=== PATIENT | female | born 1995 | race Caucasian/White ===

== ENCOUNTER 2016-08-17 08:30 | Outpatient (CLI) | payer BC, OTHER ==
[~2016-08-17] VITALS: Ht 170.2 cm; Wt 71.2 kg
--- OUTSIDE RECORDS SUMMARY | 2016-08-17 08:33 | XMS REPORT ---
Author Author LINO ZAMORA [facility] eClinicalWorks Address Unknown Phone Unavailable Care Team Providers Care Pillar Man Name Role Phone LINO ZAMORA CP Unavailable Allergies, Adverse Reactions, Alerts Substance Reaction Event Type N.K.D.A. Info Not Available Non Drug Allergy Problems Problem Type Condition Code Onset Dates Condition Status Assessment Abnormal gynecological examination Z01.411 Active Assessment Visit for gynecologic examination Z01.419 Active Assessment Right lower quadrant pain R10.31 Active Medications No Known Medications Procedures Procedure Coding System Code Date CULTURE, BACTERIA, OTHER CPT-4 68873 Feb 17, 2016 TRICHOMONAS ASSAY W/OPTIC CPT-4 29562 Feb 17, 2016 No Charge CPT-4 69669 Feb 17, 2016 BRAVO VAG, DNA, DIR PROBE CPT-4 12882 Feb 17, 2016 SPECIMEN HANDLING CPT-4 48626 Feb 17, 2016 Office Visit, Est Pt., Level 4 CPT-4 53299 Feb 17, 2016 Vital Signs Date/Time: Feb 17, 2016 Blood Pressure Systolic 102 mmHg Cardiac Monitoring Heart Rate 80 bpm Weight 165.3 lbs Blood Pressure Diastolic 64 mmHg Results No Known Results Summary Purpose eClinicalWorks Submission
[2016-08-17 08:44] VITALS: BP 100/62
[2016-08-17 09:11] LABS: BASOPHILS % (AUTO) 0 % (0-10); EOSINOPHILS # (AUTO) 0.1 10^3/uL (0.0-0.3); EOSINOPHILS % (AUTO) 2 % (0-10); LYMPHOCYTES # (AUTO) 2.5 X 10^3 (1.0-4.0); LYMPHOCYTES % (AUTO) 29 % (12-44); MEAN CORPUSCULAR HEMOGLOBIN 29 PG (25-34); MEAN CORPUSCULAR HGB CONC 33 G/DL (32-36); MEAN CORPUSCULAR VOLUME 86 FL (80-99); MEAN PLATELET VOLUME 11.4 FL (7.4-10.4); MONOCYTES # (AUTO) 0.7 X 10^3 (0.0-1.0); MONOCYTES % (AUTO) 9 % (0-12); NEUTROPHILS # (AUTO) 5.2 X 10^3 (1.8-7.8); NEUTROPHILS % (AUTO) 61 % (42-75); PLATELET COUNT 195 10^3/uL (130-400); RED BLOOD COUNT 4.29 10^6/uL (4.35-5.85); RED CELL DISTRIBUTION WIDTH 12.2 % (10.0-14.5); WHITE BLOOD COUNT 8.6 10^3/uL (4.3-11.0)
[2016-08-22] MEDS ORDERED: D5 LR IV SOLUTION 1,000 ML IV SCH (11:21)
--- NOTE | 2016-08-22 11:23 | Progress Note-Standard ---
Standard Progress Note Progress Notes/Assess & Plan Date Seen 08/22/16 Assess & Plan/Chief Complaint The following H&P was written 07/26/16 Gynecology Visit * Patient: ANNIE ZAMORA Age: 20 years Sex: Female : 1995 Associated Diagnoses: None Author: Lilly GUPTA, Salud Visit Information Visit type: Scheduled follow-up. Accompanied by: Spouse. Source of history: Self, Medical record. Referral source: Shandra Syed APRN. History limitation: None. Chief Complaint 07/26/2016 2:37 PM MACHINE CAPTAIN HERE TO DISCUSS TEST RESULTS History of Present Illness 20 y/o here for f/u on test results Reports last cycle 07/16/15, was very painful. Cycles every 32 days currently. Has tried OPKs which are negative. See last HPI: 20 y/o here for dysmenorrhea Reports she and her spouse have been trying to achieve for the last 5 years (delivered via CD for suspected CPD in August 2011, 7lb female) Since then, has noted increasing pelvic pain with periods, worse in last 6 months. Denies dypsareunia or dyschezia. Went to [facility] to discuss, had labs drawn Reports cycles every 24-34 days, lasting 4-6 days Has not used OPKs, having intercourse every day of cycle has not had SA, has fathered her nearly 5 y/o and a 3 y/o with another woman Taking PNV daily OBHx: CD 7lb for suspected CPD in [place] GYNHx: Menses 13 x 24-34 x 4-6. One lifetime partner, no STIs. LPS Feb 2016 normal, no history of abnormal pap smear. Review of Systems General - negative except per HPI Skin - negative except per HPI HEENT - negative except per HPI Breasts - negative except per HPI Respiratory - negative except per HPI Cardiovascular - negative except per HPI Gastrointestinal - negative except per HPI Urinary - negative except per HPI Gynecologic - see HPI Musculoskeletal - negative except per HPI Endocrine - negative except per HPI Hematologic - negative except per HPI Neurologic - negative except per HPI Psychiatric - negative except per HPI Health Status Allergies: Allergic Reactions (Selected) No Known Medication Allergies Medications: (Selected) Documented Medications Documented 1: 0 Refill(s), Type: Maintenance Problem list: All Problems (Selected) Dysmenorrhea, unspecified / SNOMED CT 659499764 / Confirmed Histories Past Medical History: Active Dysmenorrhea, unspecified (870604386) Resolved (043545905): Resolved in the month of 08/2011 at 15 years. Family History: Entire family history is negative. Procedure history: section (89761673). Social History: Tobacco Assessment Never smoker Physical Examination Vital Signs 07/26/2016 2:37 PM MACHINE CAPTAIN Systolic Blood Pressure 116 mmHg Diastolic Blood Pressure 62 mmHg Mean Arterial Pressure 80 mmHg BP Site Right arm Measurements from flowsheet : Measurements 07/26/2016 2:37 PM MACHINE CAPTAIN Height Measured - Standard 67 in Weight Measured - Standard 157 lb BSA 1.83 m2 Body Mass Index 24.59 kg/m2 General: Alert and oriented, No acute distress. Psychiatric: Cooperative, Appropriate mood & affect. Review / Management Results review: reviewed SA - normal. Impression and Plan Plan: 20 y/o with dysmenorrhea, chronic pelvic pain x 7 months, desires conception. Reviewed SA result - normal Her labs were normal, ultrasound was normal Discussed possible cause could be endometriosis - only way to treat this is empirically or diagnose officially with diagnostic laparoscopy. They would like to proceed with this route. Will also evaluate endometrial cavity with hysteroscopy to ensure no adhesions and peform chromopertubation at the time of the case. Procedure was discussed, risks were also reviewed. Verbal informed consent obtained today (written consent prior to OR). All questions were answered and patient was given information on preparation for surgery. Risks: She is aware of the risks of surgery, including injury to the bowel/bladder/ ureter/vessels and nerves which may need to be repaired intraoperatively or postoperatively. She is also aware of the risk of bowel/ureteral/bladder fistula. Other risks including infection, DVT/PE, wound separation/cellulitis/ evisceration, pulmonary/cardiac complications or were also discussed. She is not on blood thinners. She does not take beta blockers. She does not require a bowel prep. Scheduled 08/22/16 for diagnostic hysteroscopy, diagnostic laparoscopy, chromopertubation at 1200 (cycle is expected 08/18, so will be in early part of menses). . Patient Instructions: Pelvic Pain, Female. Signature Line Signed and Authored by Salud Carr MD on 07/26/2016 04:11 PM MACHINE CAPTAIN Charted Date: July 26, 2016 3:58 PM MACHINE CAPTAIN Subject / Title: Gynecology Visit * Performed By: Salud Carr MD on July 26, 2016 4:11 PM MACHINE CAPTAIN Electronically Signed By: Salud Carr MD on July 26, 2016 4:11 PM MACHINE CAPTAIN Visit Information: [id number], Via [facility], Outpatient, 07/26/2016 - 07/28/2016 SALUD CARR MD Aug 22, 2016 11:23
--- NOTE | 2016-08-22 11:24 | Progress Note-Pre Operative ---
Pre-Operative Progress Note H&P Reviewed The H&P was reviewed, patient examined and no changes noted. Date H&P Reviewed: Aug 22, 2016 Time H&P Reviewed: 11:24 Pre-Operative Diagnosis: Chronic pelvic pain, abnormal uterine bleeding ANGELA SUAREZ MD Aug 22, 2016 11:24
--- NOTE | 2016-08-22 11:27 | Discharge Inst-Women's Service ---
Discharge Inst-Women's Serv Depart Medication/Instructions New, Converted or Re-Newed RX: RX on Chart (and transmitted to pharmacy) Final Diagnosis Chronic pelvic pain Consults/Follow Up Additional Follow Up: Yes Orders/Referrals 2-[address] Carr Activity Activity: Activity as Tolerated Driving Instructions: No Driving for 24 Hours (or while taking narcotic pain medications) NO SMOKING: NO SMOKING Nothing Inside Vagina: No Douching, No Tampons Other Activity No heavy lifting > 10 lb, no strenuous activity for 7 days Diet Discharge Diet: No Restrictions Symptoms to Report to DrTeto: Bleeding Excessive, Pain Increased, Fever Over 101 Degrees F, Pain/Pressure in Chest, Vaginal Bleeding Increase, Dizziness/Fainting , Nausea/Vomiting, Shortness of Breath For Any Problems or Questions: Contact Your Physician, Go to Emergency Room Skin/Wound Care Infection Signs and Symptoms: Increased Redness, Foul Odor of Wound, Increased Drainage Operative Area Clean and Dry: Keep Incision Clean/Dry Stitches/[place]/Dermabond: Dermabond, Care of Stitches Bathing Instructions: ANGELA Hunt MD Aug 22, 2016 11:27
[2016-08-22] MEDS ORDERED: ONDANSETRON 4 MG/2 ML (SDV) Z0FRAN IVP PRN (11:30)
[2016-08-22] MEDS ORDERED: KETOROLAC 30 MG/ML VIAL IVP ONE (11:30)
== END 2016-08-17 08:55 | disposition home or self-care (01) ==
LOC: PREOP 08:30
PROVIDERS: ATTEND Obstetrics & Gynecology
DX: Z01.812 Encounter for preprocedural laboratory examination (principal); Z11.2 Encounter for screening for other bacterial diseases; N94.6 Dysmenorrhea, unspecified; R10.2 Pelvic and perineal pain
CPT/HCPCS: 36415; 85025; 86850; 86900; 86901; 87081

== ENCOUNTER 2016-08-22 10:21 | Day surgery (SDC) | payer BC, OTHER ==
[~2016-08-22] VITALS: Ht 170.2 cm; Wt 71.2 kg
[2016-08-22 10:19] VITALS: BP 107/71
[2016-08-22] MEDS ORDERED: LACTATED RINGERS 1,000 ML IV PRN (10:39)
[2016-08-22] MEDS ORDERED: fentaNYL INJECTION 100 MCG/2 ML AMP ONE (10:50)
[2016-08-22] MEDS ORDERED: MIDAZOLAM 2 MG/2 ML (VERSED) VIAL ONE (10:50)
[2016-08-22] MEDS ORDERED: METHYLENE BLUE 1% INJ 1 ML AMP ONE (11:14)
[2016-08-22] MEDS ORDERED: BUP/EPI 0.25% 1:200,000 (MARCAINE) 30 ML VIAL ONE (11:14)
[2016-08-22] MEDS ORDERED: HYDR-3729 PO (11:26)
[2016-08-22] MEDS ORDERED: SIME80TA16 PO (11:26)
[2016-08-22] MEDS ORDERED: IBUP-1773 PO (11:26)
[2016-08-22] MEDS ORDERED: DOCU-143 PO (11:26)
--- NOTE | 2016-08-22 11:50 | Progress Note-Standard ---
Standard Progress Note Progress Notes/Assess & Plan Date Seen 08/22/16 Assess & Plan/Chief Complaint The following H&P was written 07/26/16 Gynecology Visit * Patient: ANNIE ZAMORA Age: 20 years Sex: Female : 1995 Associated Diagnoses: None Author: Lilly GUPTA, Salud Visit Information Visit type: Scheduled follow-up. Accompanied by: Spouse. Source of history: Self, Medical record. Referral source: Shandra Syed APRN. History limitation: None. Chief Complaint 07/26/2016 2:37 PM VIDEO RECORDER MECHANIC HERE TO DISCUSS TEST RESULTS History of Present Illness 20 y/o here for f/u on test results Reports last cycle 07/16/15, was very painful. Cycles every 32 days currently. Has tried OPKs which are negative. See last HPI: 20 y/o here for dysmenorrhea Reports she and her spouse have been trying to achieve for the last 5 years (delivered via CD for suspected CPD in August 2011, 7lb female) Since then, has noted increasing pelvic pain with periods, worse in last 6 months. Denies dypsareunia or dyschezia. Went to [facility] to discuss, had labs drawn Reports cycles every 24-34 days, lasting 4-6 days Has not used OPKs, having intercourse every day of cycle has not had SA, has fathered her nearly 5 y/o and a 3 y/o with another woman Taking PNV daily OBHx: CD 7lb for suspected CPD in [place] GYNHx: Menses 13 x 24-34 x 4-6. One lifetime partner, no STIs. LPS Feb 2016 normal, no history of abnormal pap smear. Review of Systems General - negative except per HPI Skin - negative except per HPI HEENT - negative except per HPI Breasts - negative except per HPI Respiratory - negative except per HPI Cardiovascular - negative except per HPI Gastrointestinal - negative except per HPI Urinary - negative except per HPI Gynecologic - see HPI Musculoskeletal - negative except per HPI Endocrine - negative except per HPI Hematologic - negative except per HPI Neurologic - negative except per HPI Psychiatric - negative except per HPI Health Status Allergies: Allergic Reactions (Selected) No Known Medication Allergies Medications: (Selected) Documented Medications Documented 1: 0 Refill(s), Type: Maintenance Problem list: All Problems (Selected) Dysmenorrhea, unspecified / SNOMED CT 592432860 / Confirmed Histories Past Medical History: Active Dysmenorrhea, unspecified (461043589) Resolved (581108214): Resolved in the month of 08/2011 at 15 years. Family History: Entire family history is negative. Procedure history: section (16248853). Social History: Tobacco Assessment Never smoker Physical Examination Vital Signs 07/26/2016 2:37 PM VIDEO RECORDER MECHANIC Systolic Blood Pressure 116 mmHg Diastolic Blood Pressure 62 mmHg Mean Arterial Pressure 80 mmHg BP Site Right arm Measurements from flowsheet : Measurements 07/26/2016 2:37 PM VIDEO RECORDER MECHANIC Height Measured - Standard 67 in Weight Measured - Standard 157 lb BSA 1.83 m2 Body Mass Index 24.59 kg/m2 General: Alert and oriented, No acute distress. Psychiatric: Cooperative, Appropriate mood & affect. Review / Management Results review: reviewed SA - normal. Impression and Plan Plan: 20 y/o with dysmenorrhea, chronic pelvic pain x 7 months, desires conception. Reviewed SA result - normal Her labs were normal, ultrasound was normal Discussed possible cause could be endometriosis - only way to treat this is empirically or diagnose officially with diagnostic laparoscopy. They would like to proceed with this route. Will also evaluate endometrial cavity with hysteroscopy to ensure no adhesions and peform chromopertubation at the time of the case. Procedure was discussed, risks were also reviewed. Verbal informed consent obtained today (written consent prior to OR). All questions were answered and patient was given information on preparation for surgery. Risks: She is aware of the risks of surgery, including injury to the bowel/bladder/ ureter/vessels and nerves which may need to be repaired intraoperatively or postoperatively. She is also aware of the risk of bowel/ureteral/bladder fistula. Other risks including infection, DVT/PE, wound separation/cellulitis/ evisceration, pulmonary/cardiac complications or were also discussed. She is not on blood thinners. She does not take beta blockers. She does not require a bowel prep. Scheduled 08/22/16 for diagnostic hysteroscopy, diagnostic laparoscopy, chromopertubation at 1200 (cycle is expected 08/18, so will be in early part of menses). . Patient Instructions: Pelvic Pain, Female. Signature Line Signed and Authored by Salud Carr MD on 07/26/2016 04:11 PM VIDEO RECORDER MECHANIC Charted Date: July 26, 2016 3:58 PM VIDEO RECORDER MECHANIC Subject / Title: Gynecology Visit * Performed By: Salud Carr MD on July 26, 2016 4:11 PM VIDEO RECORDER MECHANIC Electronically Signed By: Salud Carr MD on July 26, 2016 4:11 PM VIDEO RECORDER MECHANIC Visit Information: [id number], [facility], Outpatient, 07/26/2016 - 07/28/2016 SALUD CARR MD Aug 22, 2016 11:50
--- NOTE | 2016-08-22 11:51 | Discharge Inst-Women's Service ---
Discharge Inst-Women's Serv Depart Medication/Instructions New, Converted or Re-Newed RX: RX on Chart (and transmitted to pharmacy) Final Diagnosis Chronic pelvic pain, dysmenorrhea Consults/Follow Up Additional Follow Up: Yes Orders/Referrals 2-[address] Carr Activity Activity: Activity as Tolerated (no strenuous activity, no heavy lifting for 7 days) Driving Instructions: No Driving for 24 Hours (or while taking narcotic pain medications) NO SMOKING: NO SMOKING Nothing Inside Vagina: No Douching, No Watchtower, No Tampons Diet Discharge Diet: No Restrictions Symptoms to Report to DrTeto: Bleeding Excessive, Pain Increased, Fever Over 101 Degrees F, Pain/Pressure in Chest, Vaginal Bleeding Increase, Dizziness/Fainting , Nausea/Vomiting, Shortness of Breath For Any Problems or Questions: Contact Your Physician, Go to Emergency Room Skin/Wound Care Infection Signs and Symptoms: Increased Redness, Foul Odor of Wound, Increased Drainage Operative Area Clean and Dry: Keep Incision Clean/Dry Stitches/[place]/Dermabond: Dermabond, Care of Stitches Bathing Instructions: ANGELA Hunt MD Aug 22, 2016 11:51
--- NOTE | 2016-08-22 11:55 | OB/GYN Operative Report ---
Operative Report Date of Procedure: November 02, 2015 Preoperative Diagnosis: Pelvic pain, dysmenorrhea Postoperative Diagnosis: Same plus endometrial polyp and patent uterine tubes Procedure: Operative hysteroscopy, endometrial polypectomy, diagnostic laparoscopy, chromopertubation Surgeon: Angela Carr MD Anesthesia: General Estimated Blood Loss: Minimal Specimens: Endometrial polyp to pathology Indications for Procedure: This is a 20 year old female with chronic pelvic pain and dysmenorrhea. She elected to undergo evaluation for possible endometriosis. She was counseled on risks, benefits and alternatives to the procedure. Findings: Hysteroscopy: Endometrial polyp approximately 1cm in size. Otherwise, normal appearing cavity with normal appearing tubal ostia. Laparoscopy: Normal appearing liver, gallbladder, stomach, bowel, bladder. Uterus normal in appearance, peritoneum overlying bladder with some adhesive disease from prior delivery (minimal). Bilateral tubes and ovaries normal in appearance. Uterine tubes patent. Procedure: The patient was taken to the operating room where sequential compression devices were placed on the bilateral lower extremities. Intravenous fluids were running. General anesthesia was obtained without difficulty. She was repositioned in the dorsal lithotomy position with the use of Yellofin stirrups. She was prepped and draped in the typical sterile fashion. The bladder was emptied with a hartmann catheter. A weighted speculum was placed in the vagina. A right angle was utilized to elevate the vaginal tissue anteriorly. A single tooth tenaculum was placed on the anterior lip of the cervix. The uterus was sounded to 8 cm. Crump dilators were used to dilate the cervix to 17mm. The Truclear 5 mm hysteroscope was then advanced into the uterine cavity under direct visualization. The aforementioned findings were noted. The morcellator was utilized to remove the aforementioned polyp. Hemostasis was noted and a normal appearing cavity was noted. The hysteroscope was removed. The acorn uterine manipulator was placed in the uterus. Gloves were then changed and the attention was turned to the abdomen. An infraumbilical incision was made with a knife following injection of 0.25% marcaine and the Veress needle was introduced into the peritoneal cavity, the opening pressure was 2mmHg. The abdomen was then insufflated to a pressure of 15 mm Hg with CO2 gas. The camera was introduced into the abdomen, confirming intraperitoneal placement and lack of operative injury to the stomach, bowel, vessels or omentum. One additional 5 mm port site was placed in the left lower quadrant under direct visualization, 2cm medial and 2 cm superior to the anterior superior iliac spine. We then turned our attention to the pelvis. The aforementioned findings were noted. Overall, a lack of pelvic disease was noted, however there was some scarring along the bladder peritoneum from the previous delivery. Methylene blue was pushed into the uterine cavity through the acorn manipulator and both uterine tubes were noted to be patent. There was no evidence of endometriosis. The gas was allowed to escape the abdomen. All ports were then removed from the abdomen under direct visualization and then finally the camera port was removed. The port sites were closed using dermabond. All instruments were removed from the vagina. The patient was brought to the recovery room in stable condition after awakening from general anesthesia. Sponge, lap and needle counts were correct x 3. Condition: Stable to recovery room ANGELA CARR MD Aug 22, 2016 11:55
[2016-08-22] MEDS ORDERED: DEXAMETHASONE PF 10 MG/ML (DECADRON) VIAL ONE (12:32)
[2016-08-22] MEDS ORDERED: LIDOCAINE PF 2% 10 ML (XYLOCAINE) AMP ONE (12:32)
[2016-08-22] MEDS ORDERED: proPOfol 200 MG/20 ML (DIPRIVAN) VIAL IV ONE (12:32)
[2016-08-22] MEDS ORDERED: ONDANSETRON 4 MG/2 ML (SDV) Z0FRAN ONE (12:32)
[2016-08-22] MEDS ORDERED: LACTATED RINGERS 1,000 ML IV ONE (12:32)
[2016-08-22] MEDS ORDERED: SEVOFLURANE (ULTANE) 15 ML INHAL SOLN ONE (12:32)
[2016-08-22] MEDS ORDERED: GLYCOPYRROLATE 0.2 MG/ML (ROBINUL) 2 ML VIAL ONE (12:33)
[2016-08-22] MEDS ORDERED: NEOSTIGMINE (BLOXIVERZ ) 1 MG/1ML 10 ML VIAL ONE (12:33)
[2016-08-22] MEDS ORDERED: KETOROLAC 30 MG/ML VIAL ONE (12:37)
[2016-08-22] MEDS ORDERED: fentaNYL INJECTION 100 MCG/2 ML AMP IV PRN (13:00)
[2016-08-22] MEDS ORDERED: ONDANSETRON 4 MG/2 ML (SDV) Z0FRAN IV ONE (13:00)
[2016-08-22] MEDS ORDERED: HYDROmorphone (DILAUDID) 2 MG/ML VIAL IV PRN (13:00)
[2016-08-22] MEDS: morphine INJ 10 MG/ML 1ML (SYR OR VIAL) IV PRN ×2 (13:05→13:10)
[2016-08-22 13:45] VITALS: BP 92/59
[2016-08-22 14:15] VITALS: BP 92/55
[2016-08-22 14:45] VITALS: BP 89/52
[2016-08-22 15:30] VITALS: BP 89/52
== END 2016-08-22 15:30 | disposition home or self-care (01) ==
LOC: SDC 10:21
PROVIDERS: ATTEND Obstetrics & Gynecology
DX: N84.0 Polyp of corpus uteri (principal)
CPT/HCPCS: 84703; 88305

== ENCOUNTER → 2016-10-23 | Outpatient (CLI) | payer BC ==
[~2016-10-23] MED LIST: DOCU-143 PO; HYDR-3729 PO; IBUP-1773 PO; SIME80TA16 PO
== END ==
LOC: LAB 14:16
PROVIDERS: ATTEND Obstetrics & Gynecology
DX: Z31.9 Encounter for procreative management, unspecified (principal)
CPT/HCPCS: 36415; 84144

== ENCOUNTER → 2017-03-06 | Outpatient (CLI) | payer BC ==
--- NOTE | 2017-03-06 17:07 | Diagnostic Imaging Report ---
First trimester OB ultrasound. INDICATION: Pelvic pain. FINDINGS: There is a normal-appearing single intrauterine . An embryo is seen with cardiac activity at 146 beats per minute. The crown-rump length is at 7 weeks and zero days. LESTER is 10/23/17. The right ovary is 3.4 CM in size with a 2 cm corpus luteum cyst suggested. IMPRESSION: Live single intrauterine . Dictated by: Dictated on workstation # [id number]
== END ==
LOC: RAD 16:13
PROVIDERS: ATTEND Obstetrics & Gynecology
DX: O26.899 Other specified pregnancy related conditions, unspecified trimester (principal); R10.2 Pelvic and perineal pain; Z3A.01 Less than 8 weeks gestation of pregnancy
CPT/HCPCS: 76801

== ENCOUNTER → 2017-06-28 | Outpatient (CLI) | payer BC ==
--- NOTE | 2017-06-28 15:05 | Diagnostic Imaging Report ---
INDICATION: Third trimester. TECHNIQUE: Multiple real-time grayscale images were obtained over the gravid uterus. COMPARISON: 03/06/2017. FINDINGS: There is a single living intrauterine in a breech presentation. There is normal volume of amniotic fluid. The placenta is posterior. There is no previa. The heart rate is 134 beats per minute. The anatomical survey is unremarkable apart from limited view of the lower spine. Cervical length is 4 cm. IMPRESSION: 1. Single living intrauterine with a sonographically estimated gestational age of 23 weeks 5 days and estimated date of confinement of October 23, 2017. 2. Cervical length is 4 cm. 3. Limited visualization of the lower lumbar spine. Biometrical measurements are as follows: Biparietal 5.71 cm, age 23 weeks 4 days. Head circumference 20.93 cm, age 23 weeks 1 days. Abdominal circumference 19.8 cm, age 24 weeks 4 days. Femur length 4.15 cm, age 23 weeks 4 days. Sonographic estimate age: 23 weeks 5 days. Sonographic estimated date of delivery: 10/20/2016. Estimated Weight: 641 gm (+/- 94 gm). LMP percentile: 73%. heart rate: 134 beats per minute. number: 1 of 1. Dictated by: Dictated on workstation # [id number]
== END ==
LOC: RAD 14:19
PROVIDERS: ATTEND Obstetrics & Gynecology
DX: Z36.89 Encounter for other specified antenatal screening (principal); Z3A.23 23 weeks gestation of pregnancy
CPT/HCPCS: 76816

== ENCOUNTER → 2017-09-20 | Outpatient (CLI) | payer BC ==
--- NOTE | 2017-09-20 20:20 | Diagnostic Imaging Report ---
INDICATION: Large for gestational age. EXAMINATION: OB ultrasound. COMPARISON: 03/06/2017 and 06/28/2017. FINDINGS: The previous ultrasound exam performed on 06/28/2017 noted a single live fetus approximately 20 weeks 5 days gestation +/-1 week. There are no abnormalities identified although lumbar spine was not optimally visualized. On this exam, the fetus is again evident. The fetus is cephalic in presentation. heart motion was noted and a rate of 149 bpm was recorded. There is no abnormality identified. The growth parameters are fairly uniform and have progressed as expected since the prior exam. The estimated weight is in the 67th percentile. The amniotic fluid volume is within normal limits. The placenta is posterior and there is no previa. IMPRESSION: 1. There is a single live fetus approximately 34 weeks 2 days gestation +/-1 week. EDC remains 10/23/2017. 2. There is no abnormality identified. 3. The growth parameters have progressed as expected since the prior study. Dictated by: Dictated on workstation # [id number]
== END ==
LOC: RAD 12:29
PROVIDERS: ATTEND Obstetrics & Gynecology
DX: O36.63X0 Maternal care for excessive fetal growth, third trimester, not applicable or unspecified (principal); Z3A.34 34 weeks gestation of pregnancy
CPT/HCPCS: 76816

== ENCOUNTER 2017-10-18 06:40 | Inpatient (IN) | payer BC ==
[~2017-10-18] VITALS: Ht 170.2 cm; Wt 91.2 kg
[~2017-10-18 06:40] MED LIST changes: +FERR256T PO; +PREN-8 PO
--- OUTSIDE RECORDS SUMMARY | 2017-10-18 06:49 | XMS REPORT ---
Author Author LINO ZAMORA [facility] eClinicalWorks Address Unknown Phone Unavailable Care Team Providers Care Senior Construction Project Manager Name Role Phone LINO ZAMORA CP Unavailable [...] System Code Date CULTURE, BACTERIA, OTHER CPT-4 47369 Feb 17, 2016 TRICHOMONAS ASSAY W/OPTIC CPT-4 77658 Feb 17, 2016 No Charge CPT-4 79145 Feb 17, 2016 BRAVO VAG, DNA, DIR PROBE CPT-4 41427 Feb 17, 2016 SPECIMEN HANDLING CPT-4 64901 Feb 17, 2016 Office Visit, Est Pt., Level 4 CPT-4 72151 Feb 17, 2016 Vital Signs Date/Time: Feb 17, 2016 Blood Pressure Systolic 102 mmHg Cardiac Monitoring Heart Rate 80 bpm Weight 165.3 lbs Blood Pressure Diastolic 64 mmHg Results No Known Results Summary Purpose eClinicalWorks Submission
--- OUTSIDE RECORDS SUMMARY | 2017-10-18 06:50 | XMS REPORT ---
Author Author VALDEZ CASTELLON Organization [facility] Address [address] [place] [address] Care Team Providers Care Multiple Drum Sander Name Role Phone VALDEZ CASTELLON Unavailable PROBLEMS Type Condition ICD9-CM Code BBQ68-XD Code Onset Dates Condition Status SNOMED Code Problem Routine physical examination Z00.00 Active 142577425 Problem Dysmenorrhea N94.6 Active 000783853 Assessment Gastroenteritis K52.9 Apr, Active 12716665 Assessment Vomiting R11.10 Apr, Active 209357178 Assessment Generalized abdominal pain R10.84 Apr, Active 915095166 ALLERGIES Substance Reaction Event Type Date Status N.K.D.A. Unknown Non Drug Allergy Apr, Unknown SOCIAL HISTORY No smoking Hx information available PLAN OF CARE VITAL SIGNS Height 66 in 2016-05-11 Weight 157.1 lbs 2016-05-11 Heart Rate 80 bpm 2016-05-11 Respiratory Rate 20 2016-05-11 BMI 25.35 kg/m2 2016-05-11 Blood pressure systolic 118 mmHg 2016-05-11 Blood pressure diastolic 78 mmHg 2016-05-11 MEDICATIONS Medication Instructions Dosage Frequency Start Date End Date Duration Status Tylenol Active Zofran 8 MG Orally Once a day 1 tablet 24h Apr, Active RESULTS Name Result Date Reference Range TEST, URINE (IN HOUSE) 2016-05-11 RESULTS negative Lot # [id number] Control + Exp date 08/2017 UA LONG DIP (IN HOUSE) 2016-05-11 Lot # [id number] Exp date 04/2017 Clarity slightly cloudy Color orange Odor no GLU negative ADRIAN negative KET negative SG >=1.030 BLO negative pH 6.0 Protein 2+ URO 0.2 NIT negative JASON negative Lot # Exp date Xray : Abdomen 2v (Upright, KUB) - IN HOUSE 2016-05-11 PROCEDURES Procedure Date Ordered Related Diagnosis Body Site URINALYSIS, AUTO, W/O SCOPE May 11, 2016 URINE TEST May 11, 2016 Office Visit, Est Pt., Level 3 May 11, 2016 X-RAY EXAM OF ABDOMEN May 11, 2016 IMMUNIZATIONS No Known Immunizations
--- OUTSIDE RECORDS SUMMARY | 2017-10-18 06:50 | XMS REPORT ---
Author Author LINO ZAMORA [facility] Address [address] [place] [address] Care Team Providers Care Clinique Counter Manager Name Role Phone LINO ZAMORA Unavailable PROBLEMS Unknown Problems ALLERGIES No Known Allergies SOCIAL HISTORY No smoking Hx information available PLAN OF CARE VITAL SIGNS MEDICATIONS No Known Medications RESULTS No Results PROCEDURES No Known procedures IMMUNIZATIONS No Known Immunizations
--- OUTSIDE RECORDS SUMMARY | 2017-10-18 06:50 | XMS REPORT ---
Author MAURICE Coelho [facility] eClinicalWorks Address Unknown Phone Unavailable Care Team Providers Care Tube Carrier Name Role Phone MAURICE HENNESSY CP Unavailable Allergies, Adverse Reactions, Alerts Substance Reaction Event Type N.K.D.A. Info Not Available Non Drug Allergy Problems Problem Type Condition Code Onset Dates Condition Status Assessment Acute bilateral low back pain without sciatica M54.5 Active Assessment Dysmenorrhea N94.6 Active Assessment Pelvic pain R10.2 Active Medications No Known Medications Procedures Procedure Coding System Code Date Office Visit, New Pt., Level 3 CPT-4 24022 Feb 16, 2016 URINALYSIS, AUTO, W/O SCOPE CPT-4 55428 Feb 16, 2016 Vital Signs Date/Time: Feb 16, 2016 Blood Pressure Systolic 104 mmHg Cardiac Monitoring Heart Rate 88 bpm Weight 163 lbs Blood Pressure Diastolic 68 mmHg Results No Known Results Summary Purpose eClinicalWorks Submission
--- OUTSIDE RECORDS SUMMARY | 2017-10-18 06:50 | XMS REPORT ---
Author Author BISHNU ANTHONY Organization [facility] Address [address] [place] [address] Care Team Providers Care Seamless Tube Mill Operator Name Role Phone ANTHONYKIMI HaynesELE Unavailable PROBLEMS Type Condition ICD9-CM Code SQU90-RE Code Onset Dates Condition Status SNOMED Code Problem Routine physical examination Z00.00 Active 332031300 Problem Dysmenorrhea N94.6 Active 362019579 Assessment Routine physical examination Z00.00 23 Feb, 2016 Active 0953565 ALLERGIES No Known Allergies SOCIAL HISTORY No smoking Hx information available PLAN OF CARE VITAL SIGNS MEDICATIONS No Known Medications RESULTS Name Result Date Reference Range LH 2016-03-11 LH 8.0 PROLACTIN 2016-03-11 Prolactin 15.4 4.8-23.3 THYROID ANALYZER 2016-03-11 TSH 2.090 0.450-4.500 A1C 2016-03-11 Hemoglobin A1c 5.4 4.8-5.6 FSH, SERUM 2016-03-11 FSH 4.2 CBC 2016-03-11 WBC 7.6 3.4-10.8 RBC 4.51 3.77-5.28 Hemoglobin 12.6 11.1-15.9 Hematocrit 38.3 34.0-46.6 MCV 85 79-97 MCH 27.9 26.6-33.0 MCHC 32.9 31.5-35.7 RDW 14.1 12.3-15.4 Platelets 196 150-379 Neutrophils 55 Lymphs 34 Monocytes 8 Eos 2 Basos 1 Neutrophils (Absolute) 4.1 1.4-7.0 Lymphs (Absolute) 2.6 0.7-3.1 Monocytes(Absolute) 0.6 0.1-0.9 Eos (Absolute) 0.1 0.0-0.4 Baso (Absolute) 0.1 0.0-0.2 Immature Granulocytes 0 Immature Grans (Abs) 0.0 0.0-0.1 LIPID PANEL 2016-03-11 Cholesterol, Total 156 100-199 Triglycerides 80 0-149 HDL Cholesterol 37 >39 VLDL Cholesterol Derick 16 5-40 LDL Cholesterol Calc 103 0-99 CMP 2016-03-11 Glucose, Serum 86 65-99 BUN 9 6-20 Creatinine, Serum 0.61 0.57-1.00 eGFR If NonAfricn Am 129 >59 eGFR If Africn Am 149 >59 BUN/Creatinine Ratio 15 8-20 Sodium, Serum 141 134-144 Potassium, Serum 4.2 3.5-5.2 Chloride, Serum 102 97-108 Carbon Dioxide, Total 22 18-29 Calcium, Serum 9.6 8.7-10.2 Protein, Total, Serum 7.1 6.0-8.5 Albumin, Serum 4.5 3.5-5.5 Globulin, Total 2.6 1.5-4.5 A/G Ratio 1.7 1.1-2.5 Bilirubin, Total <0.2 0.0-1.2 Alkaline Phosphatase, S 42 39-117 AST (SGOT) 16 0-40 ALT (SGPT) 12 0-32 PROCEDURES Procedure Date Ordered Related Diagnosis Body Site VENIPUNCT, ROUTINE* Mar 11, 2016 ROUTINE VENIPUNCTURE 2016-03-11 N/A GONADOTROPIN (LH) Mar 11, 2016 LIPID PANEL Mar 11, 2016 COMPLETE CBC W/AUTO DIFF WBC Mar 11, 2016 COMPREHEN METABOLIC PANEL Mar 11, 2016 ASSAY THYROID STIM HORMONE Mar 11, 2016 ASSAY OF PROLACTIN Mar 11, 2016 GONADOTROPIN (FSH) Mar 11, 2016 GLYCATED HEMOGLOBIN TEST Mar 11, 2016 IMMUNIZATIONS No Known Immunizations
--- OUTSIDE RECORDS SUMMARY | 2017-10-18 06:50 | XMS REPORT ---
Author Author AMPARO SERRANO [facility] Address [address] [place] [address] Care Team Providers Care Purchasing Department Clerk Name Role Phone AMPARO SERRANO Unavailable PROBLEMS Type Condition ICD9-CM Code YRI99-IH Code Onset Dates Condition Status SNOMED Code Problem , unspecified gestational age Z34.90 Active 63911398 Problem Routine physical examination Z00.00 Active 084880928 Problem Dysmenorrhea N94.6 Active 128102085 ALLERGIES No Known Allergies ENCOUNTERS Encounter Location Date Diagnosis [facility] [address] [id number] Jul, Dental examination Z01.20 [place] [address] [address] Feb, 2017 Acute suppurative otitis media of right ear without spontaneous rupture of tympanic membrane, recurrence not specified H66.001 and , unspecified gestational age Z34.90 [place] [address] [place] [id number] [place] [address] Apr, Vomiting R11.10 ; Generalized abdominal pain R10.84 and Gastroenteritis K52.9 [place] [address] [place] [id number] [place] [address] Feb, Routine physical examination Z00.00 and Dysmenorrhea N94.6 [place] [address] [address] Feb, Routine physical examination Z00.00 and Dysmenorrhea N94.6 [place] [address] [place] [id number] [place] [phone] Feb, [place] [address] [address] Jan, Right lower quadrant pain R10.31 ; Abnormal gynecological examination Z01.411 and Visit for gynecologic examination Z01.419 [facility] [address] [facility] [id number] [address] Jan, Pelvic pain R10.2 ; Acute bilateral low back pain without sciatica M54.5 and Dysmenorrhea N94.6 IMMUNIZATIONS No Known Immunizations SOCIAL HISTORY Never Assessed REASON FOR VISIT Sore throat/ rt Ear pain/ cough/ congestion x over two weeks -- мария shepherd, patient is and doesn't want to take anything OTC until she see her OBGYN in [address] Argueta PLAN OF CARE Activity Details Follow Up prn Reason: VITAL SIGNS Height 66 in 2017-02-23 Weight 164.7 lbs 2017-02-23 Temperature 97.1 degrees Fahrenheit 2017-02-23 Heart Rate 78 bpm 2017-02-23 Respiratory Rate 18 2017-02-23 BMI 26.58 kg/m2 2017-02-23 Blood pressure systolic 120 mmHg 2017-02-23 Blood pressure diastolic 78 mmHg 2017-02-23 MEDICATIONS Medication Instructions Dosage Frequency Start Date End Date Duration Status Amoxicillin 500 mg Orally every 12 hrs 1 capsule 12h Feb, Feb, 07 days Active Tylenol Active Vitamins - (Dis) Active RESULTS No Results PROCEDURES No Known procedures INSTRUCTIONS MEDICATIONS ADMINISTERED No Known Medications MEDICAL (GENERAL) HISTORY Type Description Date Surgical History section Hospitalization History past surgery
[2017-10-18 06:53] VITALS: BP 109/56
[2017-10-18] MEDS ORDERED: metroNIDAZOLE 500MG/100ML IVPB 100 ML IV ONE (07:00)
[2017-10-18] MEDS ORDERED: CATHETER FLUSH 10 ML SYR IV PRN (07:00)
[2017-10-18] MEDS ORDERED: ceFAZolin INJECTION 1,000 MG in NS (IVPB) 100 ML IV ONE (07:00)
[2017-10-18] MEDS ORDERED: CITRIC ACID/SOB CIT (BICITRA) 30 ML UDC PO ONE ×2 (07:00→07:15)
[2017-10-18] MEDS ORDERED: METOCLOPRAMIDE INJ 10 MG/2 ML (REGLAN) IV ONE ×2 (07:00→07:15)
[2017-10-18] MEDS ORDERED: BUPIVACAINE SPINAL 0.75% (SENSORCAINE) 2 ML AMP ONE (07:00)
[2017-10-18] MEDS ORDERED: FAMOTIDINE 20MG/2ML IV (PEPCID) IV ONE ×2 (07:00→07:15)
[2017-10-18] MEDS ORDERED: OXYTOCIN/NORMAL SALINE 1,000 ML IV ONE (07:08)
[2017-10-18] MEDS ORDERED: LIDOCAINE PF 2% 5 ML (XYLOCAINE) VIAL ONE ×2 (07:08→07:32)
[2017-10-18] MEDS ORDERED: fentaNYL INJECTION 100 MCG/2 ML AMP ONE (07:13)
[2017-10-18 07:14] LABS: BASOPHILS % (AUTO) 0 % (0-10); EOSINOPHILS # (AUTO) 0.1 10^3/uL (0.0-0.3); EOSINOPHILS % (AUTO) 1 % (0-10); HEMATOCRIT 35 % (35-52); HEMOGLOBIN 12.1 G/DL (11.5-16.0); LYMPHOCYTES # (AUTO) 2.4 X 10^3 (1.0-4.0); LYMPHOCYTES % (AUTO) 17 % (12-44); MEAN CORPUSCULAR HEMOGLOBIN 29 PG (25-34); MEAN CORPUSCULAR HGB CONC 35 G/DL (32-36); MEAN CORPUSCULAR VOLUME 85 FL (80-99); MEAN PLATELET VOLUME 11.1 FL (7.4-10.4); MONOCYTES # (AUTO) 1.5 X 10^3 (0.0-1.0); MONOCYTES % (AUTO) 10 % (0-12); NEUTROPHILS # (AUTO) 10.5 X 10^3 (1.8-7.8); NEUTROPHILS % (AUTO) 73 % (42-75); PLATELET COUNT 185 10^3/uL (130-400); RED BLOOD COUNT 4.12 10^6/uL (4.35-5.85); WHITE BLOOD COUNT 14.5 10^3/uL (4.3-11.0)
[2017-10-18 07:20] LABS: BILIRUBIN,URINE NEGATIVE (NEGATIVE); CLARITY,URINE SLIGHTLY CLOUDY; COLOR,URINE YELLOW; GLUCOSE, URINE (UA) NEGATIVE (NEGATIVE); KETONES,URINE 3+ (NEGATIVE); LEUKOCYTE ESTERASE ,URINE 2+ (NEGATIVE); NITRITE,URINE NEGATIVE (NEGATIVE); PH,URINE 6 (5-9); PROTEIN,URINE 1+ (NEGATIVE); UROBILINOGEN,URINE NORMAL (NORMAL)
[2017-10-18 07:35] LABS: BACTERIA,URINE MODERATE /HPF
[2017-10-18] MEDS ORDERED: CITRIC ACID/SOB CIT (BICITRA) 30 ML UDC ONE (07:40)
[2017-10-18] MEDS ORDERED: metroNIDAZOLE 500MG/100ML IVPB 100 ML ONE (07:40)
[2017-10-18] MEDS ORDERED: METOCLOPRAMIDE INJ 10 MG/2 ML (REGLAN) ONE (07:40)
[2017-10-18] MEDS ORDERED: ceFAZolin 1,000 MG (ANCEF) VIAL ONE (07:42)
[2017-10-18] MEDS ORDERED: NS (IVPB) 100 ML ONE (07:42)
[2017-10-18 07:49] LABS: ANISOCYTOSIS SLIGHT; ELLIPT/OVALOCYTES SLIGHT; EOSINOPHILS % (MANUAL) 1 %; LYMPHOCYTES % (MANUAL) 14 %; MONOCYTES % (MANUAL) 14 %; NEUTROPHILS % (MANUAL) 71 %; SPHEROCYTES SLIGHT
--- NOTE | 2017-10-18 07:50 | Progress Note-Pre Operative ---
Pre-Operative Progress Note H&P Reviewed The H&P was reviewed, patient examined and no changes noted. Date Seen by Provider: October 18, 2017 Time Seen by Provider: 07:30 Date H&P Reviewed: October 18, 2017 Time H&P Reviewed: 07:30 Pre-Operative Diagnosis: Previous section AME BROWN DO October 18, 2017 07:50
[2017-10-18] MEDS: LACTATED RINGERS 1,000 ML IV PRN ×2 (07:52→08:10)
[2017-10-18] MEDS ORDERED: raNItidine 50 MG/2 ML INJ (ZANTAC) IV ONE (08:00)
[2017-10-18] MEDS ORDERED: OXYTOCIN/NORMAL SALINE 500 ML IV ONE (08:12)
[2017-10-18] MEDS ORDERED: PHENYLEPHRINE 100 MCG/ML 10 ML (ANESTHESIA) SYR ONE (08:34)
[2017-10-18] MEDS ORDERED: KETOROLAC 30 MG/ML VIAL ONE (08:34)
[2017-10-18] MEDS ORDERED: D5 LR IV SOLUTION 1,000 ML IV SCH (08:57)
[2017-10-18] MEDS ORDERED: OXYTOCIN/NORMAL SALINE 500 ML IV SCH (08:57)
[2017-10-18] MEDS ORDERED: TETANUS,DIPTH,PERTUSS P/F (BOOSTRIX) 0.5 ML VIAL IM SCH (09:00)
[2017-10-18] MEDS ORDERED: fentaNYL INJECTION 100 MCG/2 ML AMP IVP PRN (09:00)
[2017-10-18] MEDS ORDERED: ONDANSETRON 4 MG/2 ML (SDV) Z0FRAN IVP PRN (09:00)
[2017-10-18] MEDS ORDERED: HYDROmorphone 2 MG/ML VIAL (DILAUDID) IVP PRN ×2 (09:00)
[2017-10-18] MEDS ORDERED: IBUPROFEN 600 MG (MOTRIN) TAB PO SCH (09:00)
[2017-10-18] MEDS ORDERED: MEASLES,MUMPS,RUBELLA 1 EA INJ SC SCH (09:00)
--- NOTE | 2017-10-18 09:08 | Cesarean Section Operative ---
Procedure Procedure Note Pre-operative Diagnosis: Russell Arizmendi is a 23 /Para 2/1 , Gestational Age 39 2/7 weeks, with history of previous section Post-operative Diagnosis: same Procedure: Repeat low transverse section Physician: AME BROWN Centrifugal Casting Machine Tender: Marley Soriano APRN; biology laboratory assistant necessary to retract essential neurovascular structures and assist with delivery Estimated blood loss: 500 mL Disposition: stable Findings: Viable female infant, Apgars 7/9, weight 3935 grams, intact placenta, 3vc, normal appearing uterus, tubes, and ovaries. Indications:Russell Arizmendi is a 23 /Para 2/1 ,Gestational Age 39 2/ 7 with history of previous section presenting for repeat section Procedure Details: The patient was seen in pre-op and the procedure was discussed with the patient in full, including the risks, benefits, and alternatives. All questions were answered. The patient was taken to the operating room and a time out was performed, verifying patient and procedure. After spinal anesthesia was placed by our anesthesia colleagues, the patient was placed in the dorsal supine with leftward tilt for uterine displacement.~ Her abdomen was then prepped and draped in the typical sterile fashion. A Pfannenstiel skin incision was made using a scalpel and carried down through the underlying fascia. The fascia was incised in the midline and tented up using Fidel clamps. On both the inferior and superior fascia side the rectus muscle was dissected off bluntly and sharply using Augustin scissors. The peritoneum was identified and entered bluntly in the midline. This was then stretched laterally using manual strength. After entering the abdominal cavity and confirming lack of intraperitoneal adhesions, a large Robert retractor was placed and the lower uterine segment was visualized. the bladder was advanced over the lower uterine segment. Adhesions were taken down = with the use of Metzenbaum scissors.~ A scalpel was utilized to make a low transverse uterine incision. Amniotomy was performed with an Allis clamp with return of clear fluid. There was copious fluid noted. The infant's head was grasped and brought to the level of the incision. It was delivered with assistance of the silastic suction. Fundal pressure was applied and infant was delivered without difficulty. Mouth and nares were suctioned with bulb suction. After the umbilical cord was clamped and cut, the infant was handed off to the pediatric staff. A sample of cord blood was then obtained. The placenta was delivered intact via uterine massage. The uterus was cleared of all clots and debris. The uterine incision was closed using 0 Vicryl in a running locked fashion. A second imbricated layer was placed using 0 Vicryl in a running fashion as well. The bilateral tubes and ovaries appeared normal. The abdominal gutters were cleared of all clots and debris. A final check of the uterine incision showed it to be hemostatic. The peritoneum was closed using 3-0 Vicryl in a running fashion. The fascia was closed with 0 Vicryl in a running fashion. The subcutaneous space was hemostatic, and irrigated. The subcutaneous space was closed with 3-0 Plain in running fashion. The skin was then closed using 4-0 Monocryl in a running subcuticular fashion. The skin edges were reapproximated together and were hemostatic. [place] was placed. A pressure dressing was applied. All sponge, lap and needle counts were correct at the end of the procedure per nursing. Vitals - Labs Vital Signs - I&O Vital Signs Date Time Temp Pulse Resp B/P (MAP) Pulse Ox O2 Delivery O2 Flow Rate FiO2 10/18/17 06:53 87 109/56 (73) Labs Laboratory Tests 10/18/17 06:55: White Blood Count 14.5H, Red Blood Count 4.12L, Hemoglobin 12.1, Hematocrit 35, Mean Corpuscular Volume 85, Mean Corpuscular Hemoglobin 29, Mean Corpuscular Hemoglobin Concent 35, Red Cell Distribution Width 17.0H, Platelet Count 185, Mean Platelet Volume 11.1H, Neutrophils (%) (Auto) 73, Lymphocytes (%) (Auto) 17 , Monocytes (%) (Auto) 10, Eosinophils (%) (Auto) 1, Basophils (%) (Auto) 0, Neutrophils # (Auto) 10.5H, Lymphocytes # (Auto) 2.4, Monocytes # (Auto) 1.5H, Eosinophils # (Auto) 0.1, Basophils # (Auto) 0.0, Neutrophils % (Manual) 71, Lymphocytes % (Manual) 14, Monocytes % (Manual) 14, Eosinophils % (Manual) 1, Anisocytosis SLIGHT, Spherocytes SLIGHT, Elliptocytes SLIGHT, Urine Color YELLOW , Urine Clarity SLIGHTLY CLOUDY, Urine pH 6, Urine Specific Dorado 1.020, Urine Protein 1+H, Urine Glucose (UA) NEGATIVE, Urine Ketones 3+H, Urine Nitrite NEGATIVE, Urine Bilirubin NEGATIVE, Urine Urobilinogen NORMAL, Urine Leukocyte Esterase 2+H, Urine RBC (Auto) NEGATIVE, Urine RBC NONE, Urine WBC 10- 25H, Urine Squamous Epithelial Cells 10-25H, Urine Crystals NONE, Urine Bacteria MODERATEH, Urine Casts NONE, Urine Mucus NEGATIVE, Urine Culture Indicated YES AME BROWN DO October 18, 2017 09:08
[2017-10-18 10:26] VITALS: BP 88/50
[2017-10-18] MEDS: KETOROLAC 30 MG/ML VIAL IVP SCH ×3 (12:05→21:56)
[2017-10-18] MEDS: HYDROcodone/APAP 5 MG/325 MG (LORTAB) TAB PO PRN ×3 (12:06→21:03)
[2017-10-18] MEDS: DOCUSATE SODIUM 100 MG (COLACE) CAP PO SCH ×2 (12:14→21:56)
[2017-10-18] MEDS ORDERED: CATHETER FLUSH 10 ML SYR IV SCH (14:00)
[2017-10-18 14:14] VITALS: BP 107/56
[2017-10-18 22:25] VITALS: BP 103/59
[2017-10-19 00:45] VITALS: BP 95/56
[2017-10-19 04:45] VITALS: BP 106/64
[2017-10-19] MEDS: KETOROLAC 30 MG/ML VIAL IVP SCH (04:45)
[2017-10-19 06:04] LABS: BASOPHILS % (AUTO) 0 % (0-10); EOSINOPHILS # (AUTO) 0.1 10^3/uL (0.0-0.3); EOSINOPHILS % (AUTO) 1 % (0-10); HEMATOCRIT 34 % (35-52); HEMOGLOBIN 11.4 G/DL (11.5-16.0); LYMPHOCYTES # (AUTO) 2.7 X 10^3 (1.0-4.0); LYMPHOCYTES % (AUTO) 18 % (12-44); MEAN CORPUSCULAR HEMOGLOBIN 29 PG (25-34); MEAN CORPUSCULAR HGB CONC 34 G/DL (32-36); MEAN CORPUSCULAR VOLUME 86 FL (80-99); MEAN PLATELET VOLUME 11.7 FL (7.4-10.4); MONOCYTES # (AUTO) 1.9 X 10^3 (0.0-1.0); MONOCYTES % (AUTO) 13 % (0-12); NEUTROPHILS # (AUTO) 10.3 X 10^3 (1.8-7.8); NEUTROPHILS % (AUTO) 69 % (42-75); PLATELET COUNT 159 10^3/uL (130-400); RED BLOOD COUNT 3.91 10^6/uL (4.35-5.85); RED CELL DISTRIBUTION WIDTH 16.8 % (10.0-14.5)
[2017-10-19 09:14] VITALS: BP 111/63
[2017-10-19] MEDS: DOCUSATE SODIUM 100 MG (COLACE) CAP PO SCH ×2 (09:18→21:05)
[2017-10-19] MEDS: IBUPROFEN 800 MG (MOTRIN) TAB PO SCH ×2 (10:57→18:16)
--- NOTE | 2017-10-19 12:44 | Anesthesia-Regional Post-Op ---
Regional Patient Condition Mental Status: Alert, Oriented x3 Circulation: Same as Pre-Op Headache: Absent Sensation: Full Recovery Motor Block: Absent Post Op Complications Complications None Follow Up Care/Instructions Patient Instructions None needed. Anesthesia/Patient Condition Patient is doing well, no complaints, stable vital signs, no apparent adverse anesthesia problems. No complications reported per nursing. D/C home per [facility] Criteria: Yes MELINA TORRES CRNA October 19, 2017 12:44
[2017-10-19 14:38] VITALS: BP 104/61
[2017-10-19] MEDS: HYDROcodone/APAP 5 MG/325 MG (LORTAB) TAB PO PRN ×2 (16:53→21:05)
[2017-10-19 20:55] VITALS: BP 103/60
[2017-10-20] MEDS: IBUPROFEN 800 MG (MOTRIN) TAB PO SCH ×3 (00:57→12:12)
[2017-10-20 01:00] VITALS: BP 107/55
--- NOTE | 2017-10-20 05:41 | Postpartum Progress Note ---
Post Op Post-operative Day #1/ s/p RLTCS Patient seen and examined 10/20/17 at 1300 (late entry) Subjective: Patient is without complaints. Ambulating, voiding after hartmann removed. Tolerating a regular diet without nausea or vomiting. Normal lochia. Pain is well controlled with oral pain medications. Passing flatus. breast feeding. baby with some TTN but off O2. Has IV but doing well. Objective: T 97.7 PG 111/67 Hgb 11/4 Physical Exam: General - Alert and oriented, no apparent distress Abdomen - Soft, appropriately tender to palpation, non-distended, fundus firm at umbilicus Incision - clean, dry and intact; no erythema or induration, no drainage Extremities - no edema, negative Ramiro's bilaterally Assessment: 1. post-operative day # 1, status post RLTCS. Recovering well, hemodynamically stable Plan: Routine post-operative care. Encourage breast feeding. Encourage ambulation. VTE prophylaxis: SCDs. Plan for discharge tomorrow or Monday. Vitals - Labs Vital Signs - I&O Vital Signs Date Time Temp Pulse Resp B/P (MAP) Pulse Ox O2 Delivery O2 Flow Rate FiO2 10/20/17 01:00 96.8 74 18 107/55 (72) 98 Room Air 10/19/17 20:55 97.1 77 18 103/60 (74) 98 Room Air 10/19/17 14:38 96.7 74 16 104/61 (75) 98 Room Air 10/19/17 09:14 97.7 75 16 111/63 (79) 98 Room Air Labs Microbiology 10/18/17 Urine Culture - Preliminary, Resulted Nonenterococcus (Chains Cocci) AME BROWN DO October 20, 2017 05:41
[2017-10-20] MEDS ORDERED: DOCU100C37 PO (05:44)
[2017-10-20] MEDS ORDERED: ACHD5005 PO (05:44)
[2017-10-20] MEDS ORDERED: BISACODYL 5 MG (DULCOLAX) TABLET PO PRN (05:45)
[2017-10-20] MEDS ORDERED: MILK OF MAGNESIA 400 MG/5 ML 30 ML UDC PO PRN (05:45)
--- NOTE | 2017-10-20 05:48 | Discharge Inst-Women's Service ---
Discharge Inst-Women's Serv Depart Medication/Instructions New, Converted or Re-Newed RX: RX on Chart Instructions no driving for 1 week, no lifting over 25 lbs, nothing in the vagina Final Diagnosis previous section Procedure - repeat section Consults/Follow Up Additional Follow Up: Yes (7-10 days with Dina; 6 weeks for exam ) Activity Activity: Activity as Tolerated Driving Instructions: No Driving for 1 Week NO SMOKING: NO SMOKING Nothing Inside Vagina: No Douching, No [place], No Tampons Diet Discharge Diet: No Restrictions Symptoms to Report to DrTeto: Swelling Increased, Bleeding Excessive, Pain Increased, Fever Over 101 Degrees F, Vaginal Bleeding Increase, Cramps in Feet or Legs, Vaginal Discharge Foul For Any Problems or Questions: Contact Your Physician Skin/Wound Care Infection Signs and Symptoms: Increased Redness, Foul Odor of Wound, Increased Drainage, Skin Itchy or Has a Rash, Increased Swelling, Temperature Above 101 F Operative Area Clean and Dry: Keep Incision Clean/Dry Stitches/Nik/Dermabond: Dermabond Bathing Instructions: AME Loya DO October 20, 2017 05:48
[2017-10-20] MEDS: DOCUSATE SODIUM 100 MG (COLACE) CAP PO SCH (10:02)
[2017-10-20] MEDS ORDERED: IBUP-1773 PO (10:28)
--- NOTE | 2017-10-20 10:33 | Postpartum Progress Note ---
Post Op Post-operative Day #2 s/p RLTCS. Baby will be discharged today. Subjective: Patient is without complaints. Ambulating, voiding after hartmann removed. Tolerating a regular diet without nausea or vomiting. Normal lochia. Pain is well controlled with oral pain medications. Passing flatus. breast feeding. Objective: 10/20/17 01:00 Temp 96.8 Pulse 74 Resp 18 B/P (MAP) 107/55 (72) Pulse Ox 98 O2 Delivery Room Air Physical Exam: General - Alert and oriented, no apparent distress Abdomen - Soft, appropriately tender to palpation, non-distended, fundus firm at umbilicus Incision - clean, dry and intact; no erythema or induration, no drainage Extremities - no edema, negative Ramiro's bilaterally Assessment: 1. post-operative day # 2, status post RLTCS. Recovering well, hemodynamically stable Plan: Routine post-operative care. Encourage breast feeding. Encourage ambulation. VTE prophylaxis: SCDs. Ferrous sulfate supplementation. Plan for discharge today Vitals - Labs Vital Signs - I&O Vital Signs Date Time Temp Pulse Resp B/P (MAP) Pulse Ox O2 Delivery O2 Flow Rate FiO2 10/20/17 01:00 96.8 74 18 107/55 (72) 98 Room Air 10/19/17 20:55 97.1 77 18 103/60 (74) 98 Room Air 10/19/17 14:38 96.7 74 16 104/61 (75) 98 Room Air Labs Microbiology 10/18/17 Urine Culture - Preliminary, Resulted Nonenterococcus (Chains Cocci) AME BROWN DO October 20, 2017 10:33
== END 2017-10-20 13:45 | disposition home or self-care (01) | DRG 766 ==
LOC: LDRP 06:40
PROVIDERS: ADMIT Obstetrics & Gynecology; ATTEND Obstetrics & Gynecology
PROC: 10D00Z1 Extraction of Products of Conception, Low, Open Approach (ICD-10-PCS; principal; 2017-10-18 07:58)
DX: O34.211 Maternal care for low transverse scar from previous cesarean delivery (principal); Z3A.39 39 weeks gestation of pregnancy; Z37.0 Single live birth; Z23 Encounter for immunization
CPT/HCPCS: 36415; 81000; 85007; 85025; 85027; 86850; 86900; 86901; 87088; 90715; 94664